=== PATIENT | female | born 1960 | race Caucasian/White ===

== ENCOUNTER → 2016-05-28 | Outpatient (CLI) | payer BC | LOC: RAD 10:57 | DX: N95.0 Postmenopausal bleeding (principal); R93.8 Abnormal findings on diagnostic imaging of other specified body structures ==

== ENCOUNTER → 2017-08-30 | Outpatient (CLI) | payer BC ==
[2012-09-06 07:15] VITALS: BP 116/71
== END ==
LOC: RAD 13:26
DX: J20.8 Acute bronchitis due to other specified organisms (principal); R05 Cough

== ENCOUNTER → 2017-09-26 | Day surgery (SDC) | payer BC ==
[2012-09-06 07:15] VITALS: BP 116/71
== END | disposition home or self-care (01) ==
LOC: MSO 08:11
DX: Z12.11 Encounter for screening for malignant neoplasm of colon (principal)
CPT/HCPCS: 00812; J2704; J7120

== ENCOUNTER → 2017-11-09 | Outpatient (CLI) | payer BC ==
[2012-09-06 07:15] VITALS: BP 116/71
[2017-11-09 11:57] LABS: EOS % 0.7 % (1.0-5.0); HEMATOCRIT 42.8 % (37.0-47.0); HEMOGLOBIN 14.5 g/dL (12.5-16.0); LYMPH# 1.1 (1.50-4.00); MEAN CELL VOLUME 94 fl (78-100); MEAN CORPUSCULAR HEMOGLOBIN 32 pg (27-31); MEAN CORPUSCULAR HGB CONC 34 g/dL (33-37); MEAN PLATELET VOLUME 8.1 fl (7.4-10.4); MONO # 0.3 (0.20-0.80); NEU # 2.9 (1.40-6.50); PLATELET COUNT 235 K/mm3 (130-400); RED BLOOD COUNT 4.56 M/mm3 (4.10-5.30); RED CELL DISTRIBUTION WIDTH 13.2 % (11.5-14.5); WHITE BLOOD COUNT 4.5 K/mm3 (4.8-10.8)
[2017-11-09 12:09] LABS: BUN/CREATININE RATIO 11.7 (6.0-26.0); POTASSIUM 4.3 mmol/L (3.6-5.0); TOTAL PROTEIN 7.9 g/dL (6.3-8.2)
[2017-11-09 12:30] LABS: ALBUMIN 4.5 g/dL (3.5-5.0); CALCIUM 9.4 mg/dL (8.4-10.2); TOTAL BILIRUBIN 0.7 mg/dL (0.2-1.3)
== END ==
LOC: LAB 11:29
PROVIDERS: Nurse Practitioner Family
DX: Z01.419 Encounter for gynecological examination (general) (routine) without abnormal findings (principal); Z12.31 Encounter for screening mammogram for malignant neoplasm of breast; Z13.220 Encounter for screening for lipoid disorders; N95.1 Menopausal and female climacteric states

== ENCOUNTER → 2018-05-29 | Outpatient (CLI) | payer BC ==
[2012-09-06 07:15] VITALS: BP 116/71
== END ==
LOC: RAD 11:58
DX: M18.12 Unilateral primary osteoarthritis of first carpometacarpal joint, left hand (principal)

== ENCOUNTER → 2019-02-14 | Outpatient (CLI) | payer BC ==
[2012-09-06 07:15] VITALS: BP 116/71
== END ==
LOC: LAB 15:35
DX: J03.90 Acute tonsillitis, unspecified (principal)

== ENCOUNTER → 2019-02-26 | Outpatient (CLI) | payer BC ==
[2012-09-06 07:15] VITALS: BP 116/71
[2019-02-26 11:37] LABS: BASO # 0.1 (0.02-0.10); EOS # 0.1 (0.04-0.40); EOS % 1.6 % (1.0-5.0); HEMATOCRIT 42.8 % (37.0-47.0); HEMOGLOBIN 14.2 g/dL (12.5-16.0); LYMPH# 2.1 (1.50-4.00); MEAN CELL VOLUME 93 fl (78-100); MEAN CORPUSCULAR HEMOGLOBIN 31 pg (27-31); MEAN CORPUSCULAR HGB CONC 33 g/dL (33-37); MEAN PLATELET VOLUME 8.1 fl (7.4-10.4); MONO # 0.5 (0.20-0.80); NEU # 2.9 (1.40-6.50); PLATELET COUNT 373 K/mm3 (130-400); RED BLOOD COUNT 4.62 M/mm3 (4.10-5.30); RED CELL DISTRIBUTION WIDTH 13.2 % (11.5-14.5); WHITE BLOOD COUNT 5.6 K/mm3 (4.8-10.8)
[2019-02-26 11:44] LABS: ALBUMIN 4.3 g/dL (3.5-5.0); POTASSIUM 4.3 mmol/L (3.5-5.1)
[2019-02-26 11:45] LABS: CALCIUM 9.4 mg/dL (8.3-10.5)
[2019-02-26 11:47] LABS: TOTAL PROTEIN 7.6 g/dL (6.4-8.3)
[2019-02-26 11:48] LABS: TOTAL BILIRUBIN 0.6 mg/dL (0.2-1.2)
== END ==
LOC: LAB 11:26
PROVIDERS: Nurse Practitioner Primary Care
DX: R07.0 Pain in throat (principal)

== ENCOUNTER → 2019-09-17 | Outpatient (CLI) | payer BC ==
[2012-09-06 07:15] VITALS: BP 116/71
== END ==
LOC: LAB 13:32
DX: J02.9 Acute pharyngitis, unspecified (principal)

== ENCOUNTER 2019-10-21 16:41 | Emergency (ER) | payer BC ==
[~2019-10-21] VITALS: Ht 167.6 cm; Wt 66.4 kg
[2019-10-21 18:06] VITALS: BP 155/90
== END 2019-10-21 18:07 | disposition home or self-care (01) ==
LOC: ED 16:41
DX: S93.621A Sprain of tarsometatarsal ligament of right foot, initial encounter (principal); F17.210 Nicotine dependence, cigarettes, uncomplicated; X50.1XXA Overexertion from prolonged static or awkward postures, initial encounter; Y92.009 Unspecified place in unspecified non-institutional (private) residence as the place of occurrence of the external cause
CPT/HCPCS: L4386

== ENCOUNTER → 2020-07-01 | Outpatient (CLI) | payer BC ==
[~2020-07-01] MED LIST: ACETAMINOPHEN-H1 TA2 PO; BACLOFEN20 MG PO; KETOROLAC10 MG PO
[2020-07-01 08:45] LABS: EOS # 0.1 (0.04-0.40); HEMATOCRIT 44.6 % (37.0-47.0); HEMOGLOBIN 14.7 g/dL (12.5-16.0); LYMPH# 2.2 (1.50-4.00); MEAN CELL VOLUME 94 fl (78-100); MEAN CORPUSCULAR HEMOGLOBIN 31 pg (27-31); MEAN CORPUSCULAR HGB CONC 33 g/dL (33-37); MEAN PLATELET VOLUME 8.2 fl (7.4-10.4); MONO # 0.5 (0.20-0.80); NEU # 2.7 (1.40-6.50); PLATELET COUNT 268 K/mm3 (130-400); RED BLOOD COUNT 4.73 M/mm3 (4.10-5.30); WHITE BLOOD COUNT 5.5 K/mm3 (4.8-10.8)
[2020-07-01 08:49] LABS: ALBUMIN 4.1 g/dL (3.5-5.0); POTASSIUM 3.9 mmol/L (3.5-5.1)
[2020-07-01 08:50] LABS: CALCIUM 8.7 mg/dL (8.3-10.5)
[2020-07-01 08:52] LABS: TOTAL PROTEIN 6.9 g/dL (6.4-8.3)
[2020-07-01 08:54] LABS: TOTAL BILIRUBIN 0.7 mg/dL (0.2-1.2)
== END ==
LOC: LAB 08:06
PROVIDERS: Physician Assistant
DX: Z00.00 Encounter for general adult medical examination without abnormal findings (principal); Z13.29 Encounter for screening for other suspected endocrine disorder; E78.5 Hyperlipidemia, unspecified; K90.89 Other intestinal malabsorption

== ENCOUNTER → 2020-07-07 | Outpatient (CLI) | payer BC | LOC: LAB 08:08 | DX: B34.9 Viral infection, unspecified (principal); Z20.822 Contact with and (suspected) exposure to COVID-19 ==

== ENCOUNTER 2020-07-13 07:44 | Emergency (ER) | payer BC ==
[2020-07-13] MEDS ORDERED: BACLOFEN20 MG PO (07:56)
[2020-07-13] MEDS ORDERED: ACETAMINOPHEN-H1 TA2 PO (07:57)
[2020-07-13] MEDS ORDERED: KETOROLAC10 MG PO (09:40)
[2020-07-13 09:48] VITALS: BP 137/81
== END 2020-07-13 09:48 | disposition home or self-care (01) ==
LOC: ED 07:44
DX: M54.5 Low back pain (principal); G89.29 Other chronic pain; F17.210 Nicotine dependence, cigarettes, uncomplicated; W01.0XXA Fall on same level from slipping, tripping and stumbling without subsequent striking against object, initial encounter
CPT/HCPCS: J1885

== ENCOUNTER → 2020-08-07 | Outpatient (CLI) | payer BC ==
[2020-07-13 09:48] VITALS: BP 137/81
[2020-08-07 08:35] LABS: ALBUMIN 4.2 g/dL (3.5-5.0)
[2020-08-07 08:37] LABS: CALCIUM 8.9 mg/dL (8.3-10.5)
[2020-08-07 08:38] LABS: TOTAL PROTEIN 7.2 g/dL (6.4-8.3)
[2020-08-07 08:40] LABS: TOTAL BILIRUBIN 0.6 mg/dL (0.2-1.2)
== END ==
LOC: LAB 08:04
PROVIDERS: Physician Assistant
DX: Z76.89 Persons encountering health services in other specified circumstances (principal)

== ENCOUNTER 2020-08-27 13:01 | Outpatient (RCR) | payer BC | END 2020-09-25 17:00 | disposition still patient (30) | LOC: PT 13:01 | DX: M54.5 Low back pain (principal) ==

== ENCOUNTER → 2020-09-23 | Outpatient (CLI) | payer BC | LOC: RAD 11:46 | DX: M79.604 Pain in right leg (principal); M25.561 Pain in right knee ==

== ENCOUNTER → 2020-12-05 | Outpatient (CLI) | payer BC | LOC: LAB 15:27 | DX: N39.0 Urinary tract infection, site not specified (principal) ==

== ENCOUNTER → 2020-12-19 | Outpatient (CLI) | payer BC | LOC: LAB 11:22 | DX: N39.0 Urinary tract infection, site not specified (principal) ==

== ENCOUNTER → 2022-07-05 | Outpatient (CLI) | payer BC | LOC: LAB 10:14 | DX: J02.9 Acute pharyngitis, unspecified (principal) ==

== ENCOUNTER 2023-03-04 08:00 | Outpatient (RCR) | payer BC | END 2023-04-01 15:31 | disposition home or self-care (01) | LOC: OT 08:00 | DX: M18.11 Unilateral primary osteoarthritis of first carpometacarpal joint, right hand (principal) ==

== ENCOUNTER → 2023-09-07 | Outpatient (CLI) | payer BC ==
[2023-10-27 11:23] LABS: BASO # 0.04 K/mm3 (0.02-0.10); HEMATOCRIT 43.1 % (37.0-47.0); HEMOGLOBIN 14.5 g/dL (12.5-16.0); LYMPH# 1.27 K/mm3 (1.50-4.00); MEAN CELL VOLUME 96 fl (78-100); MEAN CORPUSCULAR HEMOGLOBIN 32 pg (27-31); MEAN CORPUSCULAR HGB CONC 34 g/dL (33-37); MEAN PLATELET VOLUME 7.9 fl (7.4-10.4); MONO # 0.45 K/mm3 (0.20-0.80); NEU # 3.12 K/mm3 (1.40-6.50); PLATELET COUNT 274 K/mm3 (130-400)
[2023-10-27 11:38] LABS: ALBUMIN 4.3 g/dL (3.4-4.8); CALCIUM 9.2 mg/dL (8.3-10.5); TOTAL BILIRUBIN 0.5 mg/dL (0.2-1.2); TOTAL PROTEIN 7.2 g/dL (6.2-8.1)
== END ==
LOC: LAB 09:22
PROVIDERS: Physician Assistant
DX: E78.5 Hyperlipidemia, unspecified (principal); K90.9 Intestinal malabsorption, unspecified

== ENCOUNTER → 2023-09-26 | Outpatient (CLI) | payer BC ==
[2023-09-26 08:17] LABS: URINE APPEARANCE CLEAR (CLEAR); URINE BILIRUBIN NEGATIVE (NEGATIVE); URINE COLOR DARK YELLOW (YELLOW); URINE GLUCOSE TRACE (NEGATIVE); URINE KETONE NEGATIVE (NEGATIVE); URINE NITRATE POSITIVE (NEGATIVE); URINE PROTEIN(semi-quant) TRACE (NEGATIVE)
[2023-09-26 08:18] LABS: URINE BLOOD 1+ (NEGATIVE); URINE LEUKOCYTE ESTERASE TRACE (NEGATIVE)
[2023-09-26 08:19] LABS: URINE WBC 16-30 /hpf (0-3)
== END ==
LOC: LAB 07:50
PROVIDERS: Nurse Practitioner Family
DX: R35.0 Frequency of micturition (principal)

== ENCOUNTER → 2023-12-02 | Outpatient (CLI) | payer BC ==
[2023-12-02 12:06] LABS: BASO # 0.04 K/mm3 (0.02-0.10); EOS # 0.09 K/mm3 (0.04-0.40); EOS % 1.4 % (1.0-5.0); HEMATOCRIT 44.3 % (37.0-47.0); HEMOGLOBIN 15.1 g/dL (12.5-16.0); LYMPH# 1.65 K/mm3 (1.50-4.00); MEAN CELL VOLUME 95 fl (78-100); MEAN CORPUSCULAR HEMOGLOBIN 32 pg (27-31); MEAN CORPUSCULAR HGB CONC 34 g/dL (33-37); MEAN PLATELET VOLUME 8.1 fl (7.4-10.4); MONO # 0.35 K/mm3 (0.20-0.80); NEU # 4.06 K/mm3 (1.40-6.50); PLATELET COUNT 278 K/mm3 (130-400); RED BLOOD COUNT 4.69 M/mm3 (4.10-5.30); RED CELL DISTRIBUTION WIDTH 12.5 % (11.5-14.5); WHITE BLOOD COUNT 6.2 K/mm3 (4.8-10.8)
[2023-12-02 12:13] LABS: ALBUMIN 4.4 g/dL (3.4-4.8)
[2023-12-02 12:15] LABS: CALCIUM 9.5 mg/dL (8.3-10.5)
[2023-12-02 12:16] LABS: TOTAL PROTEIN 7.2 g/dL (6.2-8.1)
[2023-12-02 12:56] LABS: TOTAL BILIRUBIN 0.6 mg/dL (0.2-1.2)
== END ==
LOC: LAB 11:06
PROVIDERS: Physician Assistant
DX: L65.9 Nonscarring hair loss, unspecified (principal)

== ENCOUNTER → 2024-01-03 | Outpatient (CLI) | payer BC | LOC: RAD 09:29 | DX: R07.89 Other chest pain (principal) ==

== ENCOUNTER → 2024-02-20 | Outpatient (CLI) | payer BC ==
[2024-02-20 10:22] LABS: PH-URINE 7.5 (5.0 - 8.0); URINE APPEARANCE CLEAR (CLEAR); URINE BILIRUBIN NEGATIVE (NEGATIVE); URINE COLOR YELLOW (YELLOW); URINE GLUCOSE NEGATIVE (NEGATIVE); URINE KETONE NEGATIVE (NEGATIVE); URINE PROTEIN(semi-quant) NEGATIVE (NEGATIVE)
[2024-02-20 10:23] LABS: URINE BLOOD 2+ (NEGATIVE); URINE LEUKOCYTE ESTERASE NEGATIVE (NEGATIVE); URINE MUCUS PRESENT (NOT PRESENT); URINE NITRATE NEGATIVE (NEGATIVE)
== END ==
LOC: LAB 10:02
PROVIDERS: Nurse Practitioner Family
DX: N39.0 Urinary tract infection, site not specified (principal)